=== PATIENT | female | born 1995 | race African-American/Black ===

== ENCOUNTER 2017-07-20 23:47 | Emergency (ER) | payer OTHER ==
[~2017-07-20] VITALS: Ht 170.2 cm; Wt 63.0 kg
[2017-07-21] MEDS ORDERED: FLEXERIL5 MG PO (03:59)
[2017-07-21 05:07] VITALS: BP 115/80
== END 2017-07-21 05:07 | disposition home or self-care (01) ==
LOC: EME 23:47
DX: S06.0X0A Concussion without loss of consciousness, initial encounter (principal); S13.4XXA Sprain of ligaments of cervical spine, initial encounter; V49.40XA Driver injured in collision with unspecified motor vehicles in traffic accident, initial encounter
CPT/HCPCS: 99281; 99283